=== PATIENT | male | born 1940 | race Caucasian/White ===

== ENCOUNTER 2023-08-02 09:47 | Inpatient (IN) | payer MEDICARE, OTHER ==
[~2023-08-02] VITALS: Ht 175.3 cm; Wt 79.5 kg
--- NOTE | 2023-08-02 09:45 | NUR ---
TRANSITIONAL CARE ACKNOWLEDGEMENT LETTER DISCUSS AND SIGNED BY PATIENT.
[~2023-08-02 09:47] MED LIST: CHILDREN'S ASPI81 M1 PO; LISINOPRIL-HCT1 EAC2 PO; LISINOPRIL10 MG PO; METFORMIN HCL500 MG PO
--- NOTE | 2023-08-02 10:20 | NUR ---
PT ADMITTED UNDER SWING BED STATUS FROM ACUTE CARE, STAYING IN SAME ROOM. PT AWAKE IN BED, AT THE BEDSIDE. PT DENIES PAIN/NAUSEA/SOB AT THIS TIME. PT CONTINUES HAVING WEAKNESS IN HIS R LEG, DORSIFLEXION STRONGER THAN PLANTAR FLEXION. PT STATES LEG IS FEELING "MUCH BETTER IN THE LAST DAY OR TWO". LUNG SOUNDS ARE CLEAR IN ALL LOBES. HEART TONES REGULAR. NO EDEMA PRESENT, PULSES STRONG IN ALL EXTREMETIES. SCDs IN PLACE AT THIS TIME. ACTIVE BOWEL TONES, NO BM SINCE 07/31/23. PT ON 60G CARB DIET. VOIDING QUANTITY SUFFICIENT INTO URINAL AT THE BEDSIDE. PT WATCHING TV AND VISITING WITH HIS AT THIS TIME. STATES NO FURTHER NEEDS, CALL LIGHT WITHIN REACH.
--- NOTE | 2023-08-02 10:40 | NUR ---
ROUNDS. PT AND EXPRESSED APPRECIATION FOR OPTION OF TCU; GRATEFUL THAT PT CAN CONTINUE TO PROGRESS WITH SUPPORT OF HOSPITAL STAFF. PROVIDED SUPPORTIVE PRESENCE; LISTENED EMPATHETICALLY; NORMALIZED EXPERIECNE. PT AND EXPRESSED GRATITUDE.
--- NOTE | 2023-08-02 11:27 | NUR ---
PHYSICAL THERAPY IN PT'S ROOM. PT STATES NO NEEDS AT THIS TIME. REMAINING ADMISSION FOR SWING BED NOT COMPLETED AT THIS TIME D/T PHYSICAL THERAPY APPOINTMENT. CALL LIGHT WITHIN REACH.
[2023-08-02 12:14] VITALS: BP 115/70
--- NOTE | 2023-08-02 14:45 | NUR ---
PATIENT SITTING UP IN RECLINER, I&OS CHARTED. FRESH ICE WATER PROVIDED. CALL LIGHT AND PERSONAL ITEMS IN EASY REACH.
--- NOTE | 2023-08-02 14:48 | NUR ---
Patient admitted to Swingbed status today. He is on a 60 gm Cons Carb diet. Appetite is fair since he is not doing much activity. Patient states he has no food allergies, no chewing or swallowing problems, and no nutrition concerns at this time. He does not like milk or coffee, does not want tea. Would like diet cran arun for breakfast. These preferences are in Meal IQ. He has a menu and understands how to call the kitchen by a certain time to make changes to his meals. Patient is at low nutrition risk at this time.
--- NOTE | 2023-08-02 15:54 | NUR ---
THIS RN CALLS DR. GUAMAN REGARDING PT RATING PAIN 7/10 AT THIS TIME AND ALSO ASKING FOR MIRALAX. DR. GUAMAN AWARE, STATES HE IS PLACING ORDERS AT THIS TIME. PT UP TO CHAIR, CALL LIGHT WITHIN REACH, STATES NO FURTHER NEEDS AT THIS TIME.
--- NOTE | 2023-08-02 18:02 | NUR ---
[place] [facility] [place] AND [place]S, ASSISTANCE WITH GETTING PANTS AND SOCKS OVER FEET. PT REQUESTS TO AMBULATE TO BED. PT AMBULATES WITH X2PA AND FWW. PT STATES NO FURTHER NEEDS AT THIS TIME, TALKING ON PHONE WITH AND CONTINUING CROSSWORD PUZZLES. CALL LIGHT WITHIN REACH, BED RAILS UP.
--- NOTE | 2023-08-02 19:20 | NUR ---
Patient with HOB elevated, watching TV, no complaints, no noted distress, Report provided by day shift RN, call light within reach.
--- NOTE | 2023-08-02 20:13 | NUR ---
Patient resting in bed, VSS, CMS intact to legs bilat, denies pain at this time, call light within reach, no noted distress.
[2023-08-02 21:41] VITALS: BP 136/65
--- NOTE | 2023-08-02 22:06 | NUR ---
Rounding on patient, lights are out, appears a sleep, no noted distress with RR bayron and unlabored, appears comfortable.
--- NOTE | 2023-08-03 00:03 | NUR ---
Patient appears a sleep, appears comfortable, RR bayron and unlabored, call light within reach,
--- NOTE | 2023-08-03 02:30 | NUR ---
Patient awake and watching TV, Has no compliants, denies need for pain medication, assessment without change, call light within reach.
--- NOTE | 2023-08-03 04:25 | NUR ---
Patient resting with eyes closed, appears comfortable, lights out, no noted distress, RR even and unlabored.
--- NOTE | 2023-08-03 05:23 | NUR ---
Patient has slept well this shift, Required no pain medication, Has had no distress, LE bilat CMS intact. Continues to appear comfort, call light within reach.
--- NOTE | 2023-08-03 07:35 | NUR ---
RECEIVED REPORT FROM GIOVANNI RUELAS. ASSUMING CARE OF PT.
--- NOTE | 2023-08-03 08:20 | NUR ---
PT STATES PAIN IS "NOT TOO BAD" RIGHT NOW, BUT WOULD LIKE PRN PAIN MEDICATION TO PREPARE FOR PHYSICAL THERAPY. PT ABLE TO AMBULATE WITH X1PA AND FWW, CONTINUES TO BE UNSTEADY ON OWN. LUNG SOUNDS CLEAR. HEART TONES REGULAR. NO EDEMA, CAP REFILL BRISK AND PULSES STRONG IN ALL EXTREMETIES. PT TOLERATING 60G CARB DIET WELL. PT VOIDING QUANTITY SUFFICIENT, CONTINUES TO USE URINAL AT THE BEDSIDE. PT STATES THE AREA AROUND HIS COCCYX IS SORE, SKIN ON COCCYX SHOWS NO REDNESS, BLANCHABLE. PT EDUCATION ON TURNING IN BED AND IN CHAIR TO PREVENT PRESSURE INJURY, PT VERBALIZES UNDERSTANDING. PT LYING IN BED WATCHING TV. PT STATES NO NEEDS AT THIS TIME, CALL LIGHT WITHIN REACH, BED RAILS UP.
--- NOTE | 2023-08-03 10:55 | NUR ---
PHYSICAL THERAPY AT THE BEDSIDE.
[2023-08-03 12:00] VITALS: BP 123/73
--- NOTE | 2023-08-03 16:40 | NUR ---
PT IN BED, HAS BEEN TURNING Q2H PER PT AFTER EDUCATION ON TURNING THIS AFTERNOON. PT STATES PAIN IS "MANAGEABLE" AT THIS TIME AND DENIES NEED FOR PAIN MEDICATION. PT STATES NO FURTHER NEEDS AT THIS TIME, CALL LIGHT WITHIN REACH, BED RAILS UP.
--- NOTE | 2023-08-03 18:20 | NUR ---
PT REPORTS DISCOMFORT BETWEEN BUTTOCKS, REDNESS SEEN BY THIS RN. WOUND CARE NURSE NOTIFIED AND TO BEDSIDE. SEE TEMP RECRUITER NOTE AND ASSESSMENT.
[2023-08-03 20:01] VITALS: BP 150/80
--- NOTE | 2023-08-03 20:09 | NUR ---
Patient awake, watching TV, lying on right side with pillow supports, Encouraging independence as tolerates, Bilat LE CMS intact, patient denies pain at this time. VSS, Report provided by juan RN, call light within reach.
--- NOTE | 2023-08-03 22:16 | NUR ---
Patient assisted to turn from right side to left, pillows in place for support, patient tolerated well. call light within reach.
--- NOTE | 2023-08-04 00:01 | NUR ---
Rounding on patient, Continues to sleep, appears comfortable without distress, resp even and unlabored, call light within reach.
--- NOTE | 2023-08-04 02:39 | NUR ---
Rounding on patient who remains a sleep, lying on his side, appears comfortable, no distress, RR even and unlabored.
--- NOTE | 2023-08-04 04:15 | NUR ---
Patient continues to sleep well, no distress, RR even and unlabored, call light within reach.
--- NOTE | 2023-08-04 05:04 | NUR ---
Patient has slept well thru the night. He has stayed on his side with pillow supports, He has required no pain medication, CMS to lower extremeties intact.
[2023-08-04 05:14] VITALS: BP 143/85
--- NOTE | 2023-08-04 05:53 | NUR ---
Patient awake, assisted to turn on other side with pillows in place for support. Requested and given pain medication. Watching TV now, VSS. call light within reach.
--- NOTE | 2023-08-04 08:30 | NUR ---
GOT PATIENT UP ON THE SIDE OF HIS BED HELPED HIM PUT ON HIS UNDERWEAR. THAN WE WALKED OVER TO HIS CHAIR. PATIENT HAD HIS WALKER. CHANGED HIS BED LINENS. ALSO SET HIM UP TO BRUSH HIS TEETH AND WASH HIS FACE.
[2023-08-04 09:05] VITALS: BP 127/87
--- NOTE | 2023-08-04 09:44 | NUR ---
Patient sitting up in chair, no acute distress, a&ox4. Patient reports tolerable pain at this time. Miralax provided to patient per his request to prevent constipation. Patient eating breakfast at this time. No current needs, personal supplies and call light within reach.
--- NOTE | 2023-08-04 11:13 | NUR ---
ROUNDS. PT WORKING WITH PHYSICAL THERAPY. CONNECTED BRIEFLY WHILE WALKING; PROVIDED SUPPORTIVE PRESENCE; PROVIDED SILENT PRAYER.
--- NOTE | 2023-08-04 12:02 | NUR ---
Patient sitting up in chair watching tv, no distress. Patient reports tolerable pain at this time. Lunch to patient. Patient denies needs, personal supplies and call light within reach.
--- NOTE | 2023-08-04 13:15 | NUR ---
WHEN I GOT BACK FROM LUNCH PATIENT WANTED ME TO PUT MORE WATER IN HIS FLOWER VASE. HIS LYNCH WERE THIRSTY. TOOK HIS LUNCH TRAY OUT.
--- NOTE | 2023-08-04 15:24 | NUR ---
Admin tylenol 650mg po and oxycodone 5mg po for reports of 5/10 right hip pain. Patient denies further needs, call light within reach.
--- NOTE | 2023-08-04 19:20 | NUR ---
FISCAL ECONOMIST assisting patient in room. Report given by laura DAVILA.
--- NOTE | 2023-08-04 20:37 | NUR ---
Patient assisted by TRAUMA COORDINATOR from chair to bed. Barrier cream applied to gluteal fold. Rash noted from previous day gone. VSS, Patient declines need for pain medication at this time, Bruise noted to right hip, CMS to lower extremeties intact, patient resting and watching TV, call light within reach.
[2023-08-04 20:41] VITALS: BP 156/78
--- NOTE | 2023-08-04 22:01 | NUR ---
Patient resting with eyes closed, appears comfortable, no noted distress, RR even and unlabored.
--- NOTE | 2023-08-04 23:57 | NUR ---
Patient is awake, stated he slept for a little while, has no complaints, he is watching TV, call light within reach.
--- NOTE | 2023-08-05 02:13 | NUR ---
Patient called, requested and given pain medication, putting HOB down now to get some more sleep. no complaints, assessment without change. call light within reach.
--- NOTE | 2023-08-05 03:50 | NUR ---
Patient resting with eyes closed, appears comfortable, no distress, RR even and unlabored. call light within reach.
--- NOTE | 2023-08-05 06:26 | NUR ---
Patient did not sleep well the first part of shift, awake watching TV, Medicated for right hip pain once with 5mg oxy. CMS intact, Patient resting now with eyes closed and appears comfortable, RR even and unlabored. call light within reach.
--- NOTE | 2023-08-05 08:02 | NUR ---
Patient sitting up in chair, alert and oriented x3, no distress. Pt reports 5/10 right hip pain, admin tylenol 650mg po and oxycodone 5mg po at this time. Patient has no needs. Personal supplies and call light within reach.
--- NOTE | 2023-08-05 08:27 | NUR ---
Patient requested a blood sugar spot check. bs 172 at this time. Patient just had a large glass of orange juice-education provided to patient regarding likelihood of increased sugar as he just drank juice. Patient repors his understanding but still wanted bs checked.
--- NOTE | 2023-08-05 15:00 | NUR ---
AFTER HIS SHOWER WAS DONE I DRIED HIS BACK AND THE BOTTOM OF HIS LEGS. HE PUT ON HIS SHIRT. NEEDED A LITTLE HELP ON PUTTING ON HIS UNDERWEAR AND SWEAT PANTS. THAN WE WALKED BACK TO HIS BED. LAYING ON HIS LEFT SIDE. IN ROOM.
[2023-08-05 15:06] VITALS: BP 119/97
--- NOTE | 2023-08-05 15:41 | NUR ---
Patient in bed resting, no distress. at bedside visiting. No current needs, peronal supplies and call light within reach.
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
--- NOTE | 2023-08-05 18:09 | NUR ---
Admin tylenol 650mg po and oxycodone 5mg po for reports of 8/10 right hip pain.
[2023-08-05 20:13] VITALS: BP 126/73
--- NOTE | 2023-08-05 20:30 | NUR ---
PT LEYING ON LEFT SIDE, BRUISED AREA R HIP AND GROIN. NO C/O PAIN. TURNS AND REPOSITIONS SELF. ON ROOM AIR, CLEAR LUNS. ALLEVYN DRESSING TO SACRAL AREA, DESITING OINTMENT APPLIED TO RECTAL AREA. PLEAQSANT AND COOPERATIVE. FRESH WATER GIVEN.
--- NOTE | 2023-08-06 01:21 | NUR ---
RESTING, LAYING ON RIGHT SIDE, ROOM IAR, TURNS AND REPOSTIONS SELF IN BED. USED URINAL, VOIDING DARK YELLOW URINE QS
--- NOTE | 2023-08-06 02:01 | NUR ---
USED CALL LIGHT, TURNED AND REPOSITIONED TO LEFT SIDE PER HIS REQUESTS
--- NOTE | 2023-08-06 03:01 | NUR ---
hob elevated, c/o R hip pain 02/23. medicated with Oxycodone 10mg po. fresh water given. awake and alert
--- NOTE | 2023-08-06 05:29 | NUR ---
PT ON ROOM AIR, CLEAR LUNGS, NO BM SINCE 07/31, AND SOFT ABD, DENIES S/SX CONSTIPATION. HAS BEEN MEDICATED WITH OXYCODONE 10MG PO PER R HIP PAIN, R HIP BRUISED LATERAL AREA, AND INGUINAL CREASE. ALLEVYN WAS APPLIED EARLIER BY WOUND NURSO TO SACRAL AREA, AND DESITIN GOINTMENT APPLIED TO RECTAL ENTRANCE. PT SAID IT HAS WORKED IN THE PAST WHEN HE HAD RECTAL TEARS. COOPERATIVE. tOLERATING LIQUIDS WELL, NO N/V, TURNS AND REPOSITIONS SELF IN BED. USES URINAL, VOIDING DARK YELLOW URINE QS. PLEASANT AND COOPERATIVE, USES CALL LIGHT
--- NOTE | 2023-08-06 07:50 | NUR ---
PT ALERT AND INTERACTIVE AT TIME OF SHIFT REPORT. ASSISTED UP TO THE CHAIR FRESH H20 TO CHAIRSIDE. PT HAS CALL LIGHT AND NEEDED ITEMS IN REACH AGREES HE IS COMFORTABLE. MAKING EFFORT TO RELIEVE PRESSURE FROM HIS BOTTOM SITTING MORE ON HIS SIDE.
--- NOTE | 2023-08-06 08:48 | NUR ---
PT UNABLE TO GET OFF HIS BOTTOM AND COMFORTABLE IN THE CHAIR. SPOKE WITH P/T AND DC KITCHEN BATH DESIGNER R/T 90% RULE OF STAYING IN THE CHAIR. PT INSTRUCTED PRESSURE RELIEF IS IMPORTANT AND PLAN TODAY IS TO RESTING SIDE LYING IN BED AND THEN UP AMBULATING, STRETCHING, AND STANDING AT REGULAR INTERVALS. PT ASSISTED TO BED RESTING ON L SIDE MORNING MEAL PROVIDED.
--- NOTE | 2023-08-06 09:28 | NUR ---
PT UP AMBULATING WITH P/T GONE TO THERARAPY ROOM.
--- NOTE | 2023-08-06 11:19 | NUR ---
PT TO THE SHOWER STAFF ASSIST TO WASH AND DRY. PT RETURNS TO SITTING ON THE EDGE OF THE BED. IS PRESENT IN THE ROOM.
--- NOTE | 2023-08-06 11:30 | NUR ---
FISSURE ON PT BOTTOM VISUALIZED, HE ALSO HAS A SMALL SHALLOW OPEN AREA TOP RIGHT GLUTEAL FOLD. THERE ARE NO INDICATIONS OF PRESSURE RELATED INJURIES OR PROBLEM AREAS. ENTIRE BOTTOM WASHED WELL IN THE SHOWER AND DESITIN APPLIED. FOAM DRESSING REMOVED PRIOR. DISCUSSED SKIN CARE, WOUND TREATMENT, AND LINK WASH AT LENGTH WITH PT AND HIS . REPORTS SHE WAS TOLD THE SAME BY THE VEGETABLE LOADER IN [place]. UNDERSTANDING VERBALIXZED
--- NOTE | 2023-08-06 14:15 | NUR ---
PT SAT UP IN THE CHAIR FOR A TIME HAS MOVED TO THE BED IN A SIDE LYING POSITION. PRESENT IN THE ROOM
[2023-08-06 14:34] VITALS: BP 137/81
--- NOTE | 2023-08-06 16:35 | NUR ---
PT UP TO THE CHAIR FOR EVENING MEAL WATCHING FOOTBALL GAME ON TV. HAS GONE HOME. CALL LIGHT AND NEEDED ITEMS IN REACH.
--- NOTE | 2023-08-06 19:33 | NUR ---
Pt up in recliner chair, visiting via phone, no c/o pain. legs elevated
[2023-08-06 20:47] VITALS: BP 123/78
--- NOTE | 2023-08-06 21:02 | NUR ---
pt was up in chair, elevated legs, 1pa/ sba/fww slow WBAT , did very well, only required help transferring up from chair and elevating legs back to bed. repositioned self. hob elevated at this time, denies need for pain med. "I would like to wait a little bit and do my pain meds and the oitment at the same time. Pleasant and cooperative, voided using urinal, medium colored yellow urine
--- NOTE | 2023-08-07 00:15 | NUR ---
Resting, eyes closed, HOB elevated, used urinal.
--- NOTE | 2023-08-07 02:31 | NUR ---
on room air, turned and repositioned, c/o 8/10 R leg pain. bruising R hip improving. cooperative, using urinal
--- NOTE | 2023-08-07 04:50 | NUR ---
Has slept, was medicated with Oxycodone and Tylenol per R hip pain. Bruised area R hip, helps with turning and repositionin. uses urinal, 1PA/FWW Contniues on transitional care.
--- NOTE | 2023-08-07 06:48 | NUR ---
Pt resting, in bed, hob elevated. laying on Left side, bruising R hip and R elbow. no changes. no s/sx distress. uses urinal
--- NOTE | 2023-08-07 07:38 | NUR ---
PT RESTING IN BED AT TIME OF SHIFT REPORT. UP TO THE CHAIR NOW, SBA USING THE WALKER. FRESH H20 TO CHAIRSIDE, CALL LIGHT IN HIS LAP. PT AGREES HE WOULD LIKE PAIN MEDS WITH MORNING MEAL TO PREPARE FOR P/T. LINK CARE COMPLETED BARRIER APPLIED. PERSONAL CARE ITEMS PROVIDED, PT BRUSHING HIS TEETH AND DOING MORNING CARES
--- NOTE | 2023-08-07 08:42 | NUR ---
BREAKFAST WELL TOLERATED PT CALLS FOR UP TO THE TOILET IS ABLE TO MOVE HIS BOWELS. LINK CARE COMPLETED AND BARRIER REAPPLIED. PT BACK TO THE CHAIR WATCHING TV NEEDED ITEMS IN REACH.
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
[2023-08-07 09:23] VITALS: BP 136/74
--- NOTE | 2023-08-07 10:22 | NUR ---
PT INDICATES HE HURTS MORE THAN YESTERDAY EVEN AFTER PAIN MED. ASSISTED BACK TO BED TO REST FOR A TIME BEFORE P/T. PT RESTING EYES CLOSED
--- NOTE | 2023-08-07 11:02 | NUR ---
PT UP WORKING WITH P/T AT THIS TIME
--- NOTE | 2023-08-07 11:18 | NUR ---
PT IS PAINFUL THIS SHIFT P/T HAS INCREASED. RETURNED TO BED AFTER SESSION TO REST FOR A BIT BEFORE NOON MEAL.
--- NOTE | 2023-08-07 13:29 | NUR ---
Dietary is sending either Glucerna or Ensure Max Protein with meals to optimize nutrition for wound healing.
--- NOTE | 2023-08-07 13:30 | NUR ---
ROUNDS. PT EXHIBITED POSITIVE ATTITUDE; EXPRESSED GRATITUDE. LISTENED EMPATHETICALLY; PROVIDED SUPPORTIVE PRESENCE; EXPLORED HOPE. PT EXPRESSED DETERMINATION AND GRATITUDE.
--- NOTE | 2023-08-07 14:27 | NUR ---
PT RESTED IN BED FOR AWHILE THEN UP TO THE CHAIR AROUND NOON TIME. PT TRYING TO REPOSITION OFF HIS BOTTOM NOT GETTING COMFORTABLE. TRANSFERRED TO BED FOR PRESSURE RELIEF. PT WATCHING TV.
--- NOTE | 2023-08-07 15:34 | NUR ---
PATIENT RESTING IN BED WATCHING TV. PATIENT DENIES NEED FOR PAIN MEDS AT THIS TIME. ASSISTED UP WITH SBA/FWW TO SHOWER, NAC ASSISTING IN SHOWER AT THIS TIME. NO COMPLAINTS AT THIS TIME. PATIENT WOULD LIKE TO REASSESS NEED FOR PAIN MEDICATIONS AFTER SHOWER.
--- NOTE | 2023-08-07 15:45 | NUR ---
PT UP TO THE SHOWER STAFF ASSIST.
--- NOTE | 2023-08-07 17:51 | NUR ---
PATIENT RESTING IN BED, WATCHING TV. CALL LIGHT WITHIN REACH. PT STATES PAIN IS IMPROVING /10. DINNER ON TABLE, GOOD APPETITE. CALL LIGHT WITHIN REACH. ALL PT CARE NEEDS MET AT THIS TIME.
--- NOTE | 2023-08-07 18:53 | NUR ---
PATIENT RESTING IN BED WITH EYES CLOSED. CALL LIGHT WITHIN REACH. NO ACUTE NEEDS AT THIS TIME.
--- NOTE | 2023-08-07 19:28 | NUR ---
REPORT RECEIVED FROM DAY SHIFT RN. PT LYING IN BED ALERT AND ORIENTED TALKING ON THE PHONE. DENIES NEEDS. WHITE BOARD UPDATED. CALL LIGHT IN REACH.
[2023-08-07 20:00] VITALS: BP 149/84
--- NOTE | 2023-08-07 20:19 | NUR ---
EVENING ASSESSMENT COMPLETE. PT REPORTS RIGHT HIP PAIN 12/24. PRN FOR PAIN ADMIN PER EMAR. CMS INTACT BILAT. BRUISE NOTED ON RIGHT HIP AND ELBOW. PT REPOSITIONING SELF IN BED. ASSISTED TO CHANGE CLOTHES FOR BED. VS AND I&O OBTAINED. PT DENIES FURTHER NEEDS. CALL LIGHT IN REACH.
--- NOTE | 2023-08-07 22:50 | NUR ---
PT RESTING IN BED WITH EYES CLOSED. RESPIRATIONS EVEN. URINAL EMPTIED. CALL LIGHT IN REACH.
--- NOTE | 2023-08-08 02:17 | NUR ---
PT AWAKE IN BED. URINAL EMPTIED. PT REPORTS RIGHT HIP PAIN 12/24. PRN FOR PAIN ADMIN PER EMAR. ASSISTED PT TO REPOSITION. NO FURTHER NEEDS.
--- NOTE | 2023-08-08 06:25 | NUR ---
PRN FOR RIGHT HIP PAIN ADMIN PER EMAR. PT REPOSITIONED SELF TO LEFT SIDE WITH PILLOW BEHIND RIGHT HIP. URINAL EMPTIED. NO FURTHER NEEDS.
--- NOTE | 2023-08-08 07:55 | NUR ---
PATIENT RESTING IN BED WATCHING TV THIS MORNING. STATES PAIN IS BETTER CONTROLLED THIS MORNING, 09/23. ASSISTED PT TO CHAIR THIS MORNING SBA W/ FWW, PT WAS MORE SHAKING BUT DID WELL. PROVIDED ORAL CARE SUPPLIES, WARM WASH CLOTHE, PATIENT ON THE PHONE AT THIS TIME WITH . ALL PATIENT CARE NEEDS MET AT THIS TIME.
--- NOTE | 2023-08-08 09:01 | NUR ---
PT UP IN CHAIR, EATING BREAKFAST, PAIN IS 4/10, PRN TYLENOL GIVEN. PT ARRIVED AT BEDSIDE, WILL COME BACK AFTER OXYCODONE AT ABOUT 1100 THIS MORNING. PT GIVEN MEDICATIONS, NO COMPLAINTS AT THIS TIME.
[2023-08-08 09:17] VITALS: BP 130/69
--- NOTE | 2023-08-08 10:09 | NUR ---
ROUNDS. PT WORKING WITH THERAPY. NO VISIT. PROVIDED PRAYER.
--- NOTE | 2023-08-08 10:21 | NUR ---
PATIENT LIKES VANILLA GLUCERNA AND CHOCOLATE ENSURE MAX PROTEIN. HE WAS EATING BREAKFAST WELL AND DRANK ALL OF THE VANILLA GLUCERNA. HE SAID HE IS DOING WELL WITH MEALS. WE HAVE HIS FOOD PREFERENCES IN THE MEAL IQ. 60 GM CONS CARB DIET IN PLACE. NO OTHER NUTRITION CHANGES NEEDED AT THIS TIME. WILL CONTINUE TO MONITOR AND ASSIST WITH ANY OTHER NUTRITIONAL NEEDS.
--- NOTE | 2023-08-08 10:46 | NUR ---
PT RESTING IN BED, WATCHING TV. C/O PAIN 01/23 NOW, FEELS PAIN JUST CREEPED UP. NO OTHER CONCERNS. REMINDED PT P/T WILL BE COMING HERE SHORTLY TO WORK WITH HIM. CALL LIGHT WITHIN REACH. ALL PATIENT CARE NEEDS MET AT THIS TIME.
[2023-08-08 11:00] VITALS: BP 130/69
--- NOTE | 2023-08-08 11:14 | NUR ---
PT RESTING IN BED, STATES PAIN IS SLOWLY IMPROVING. PRESENT AT BEDSIDE NOW, UPDATES GIVEN. DAUGHTER PRESENT ON THE PHONE. ALL QUESTIONS ANSWERED AT THIS TIME. AWAITING P/T FOR TO BE PRESENT. NO OTHER CONCERNS AT THIS TIME.
--- NOTE | 2023-08-08 14:57 | NUR ---
PT UP IN CHAIR, WORKING ON COMPUTER. PATIENT STATES PAIN IS SLIGHTLY BETTER THIS AFTERNOON, DISCUSSED PAIN MGMT, PT AGREES TO DECREASING TO 1 TABLET TO SEE HOW THAT MANAGES PAIN AND POSSIBLY ALTERNATE 5-10MG WITH NEXT DOSE, WILL EVALUATE EFFECTIVENESS. PT GIVEN LYNCH THAT WERE DELIVERED, WATERED ADDITIONAL LYNCH IN ROOM. SAT AT EDGE OF BED FOR ABOUT 10 MINUTES JUST CHATTING WITH PT. ALL CARE NEEDS MET AT THIS TIME.
--- NOTE | 2023-08-08 16:40 | NUR ---
PT SITTING UP IN CHAIR, WORKING ON COMPUTER. TOOK A SMALL NAP. STATES HE IS FEELING MUCH BETTER, REPOSITIONS SELF TO THE (L) HIP. ALL PATIENT CARE NEEDS MET AT THIS TIME.
--- NOTE | 2023-08-08 17:39 | NUR ---
PT UP IN CHAIR HAVING DINNER. REQUESTED DIABETIC ENSURE WITH DINNER. STATES HE IS FEELING BETTER THIS EVENING, NO COMPLAINTS AT THIS TIME.
--- NOTE | 2023-08-08 17:56 | NUR ---
PT HAS BEEN UP TO CHAIR FOR ALL MEALS. PT PAIN IS CONTROLLED AT THIS TIME AT 4/10, HE HAS REQUESTED TO ATTEMPT TO ALTERNATE BETWEEN 5MG AND 10MG FOR PAIN CONTROL, ALONG WITH TYLENOL. URINAL HAS BEEN AT BEDSIDE, GOOD OUTPUT. GOOD APPETITE FOR ALL MEALS. PRESENT AT BEDSIDE THIS AFTERNOON. VS STABLE THROUGHOUT SHIFT. P/T WORKED WITH PATIENT, STAIRS SEEM TO STILL BE A CONCERN FOR PT DISCHARGE. SBA W/ FWW AT ALL TIME. NO MAJOR EVENTS THIS SHIFT. ALL PATIENT CARE NEEDS MET AT THIS TIME.
--- NOTE | 2023-08-08 19:12 | NUR ---
REPORT RECEIVED FROM DAY SHIFT RN. PT LYING IN BED ALERT AND ORIENTED. DENIES NEEDS. WHITE BOARD UPDATED. CALL LIGHT IN REACH.
[2023-08-08 21:55] VITALS: BP 151/82
--- NOTE | 2023-08-08 22:11 | NUR ---
EVENING ASSESSMENT COMPLETE. PRN FOR 5/10 RIGHT LEG PAIN ADMIN PER EMAR. VS AND I&O OBTAINED, WNL. CMS INTACT BILAT. ASSISTED PT TO REPOSITION TO LEFT SIDE WITH PILLOW UNDER RIGHT HIP. PT DENIES FURTHER NEEDS. CALL LIGHT IN REACH.
--- NOTE | 2023-08-09 00:11 | NUR ---
PT REPORTS RIGHT LEG PAIN 5/10. PRN FOR PAIN ADMIN PER EMAR. ASSISTED PT TO REPOSITION IN BED. NO FURTHER NEEDS.
--- NOTE | 2023-08-09 02:44 | NUR ---
PT RESTING IN BED WITH EYES CLOSED. RESPIRATIONS EVEN. CALL LIGHT IN REACH.
--- NOTE | 2023-08-09 05:31 | NUR ---
PT SPILLED WATER IN BED. UP TO SIDE OF BED WITH SBA AND FWW TO CHANGE LINENS AND CLOTHING. PT ABLE TO LIFT LEGS INTO BED. POONAM WELL. PRN FOR 7/10 RIGHT LEG PAIN ADMIN PER EMAR. NO FURTHER NEEDS. CALL LIGHT IN REACH.
--- NOTE | 2023-08-09 07:43 | NUR ---
RECEIVED REPORT FROM KELLEY RN. PATIENT RESTING IN BED, EYES CLOSED. TV ON BUT DID NOT AWAKEN WHEN ENTERED ROOM. CALL LIGHT WITHIN REACH.
--- NOTE | 2023-08-09 08:44 | NUR ---
we helped him put his pants on and get up on his chair to eat his breakfest.
[2023-08-09 08:59] VITALS: BP 144/66
[2023-08-09 09:11] VITALS: BP 144/66
--- NOTE | 2023-08-09 10:17 | NUR ---
PT UP IN CHAIR, WORKING ON COMPUTER. PT ABLE TO MOVE LEG UP AND DOWN. EXERCISES DONE IN CHAIR, PER PT. PAIN 5/10 THIS MORNING POST PAIN MEDICATION. ALL PATIENT CARE NEEDS MET AT THIS TIME.
--- NOTE | 2023-08-09 11:03 | NUR ---
PT UP WALKING WITH P/T THIS MORNING. AMBULATING HALLWAYS W/ FWW/SBA. P/T REPORTS PATIENT DID WELL WITH 2 RAILS, STRUGGLED A BIT WITH 1RAIL/CANE. PLANNING FOR POSSIBLE HOME VISIT PT/OT EVMonday; POTENTIAL PLAN TO DISCHARGE HOME MONDAY IF EVERYTHING ALIGNS. WILL CONTINUE TO WORK WITH PATIENT THROUGHOUT THE DAYS FOR IMPROVEMENT IN STRENGTH/MOBILITY.
--- NOTE | 2023-08-09 12:35 | NUR ---
PT UP IN CHAIR, FINISHED WITH LUNCH, WATCHING TV. HAS EXERCISE BAND AROUND FOOT AND PERFORMING LEG LIFTS IN CHAIR. PT REPORT PAIN 6/10, PRN OXYCODONE/TYLENOL GIVEN. CALL LIGHT WITHIN REACH. FRESH ICE WATER GIVEN TO PATIENT. ATE 75% OF MEAL. ALL PATIENT CARE NEEDS MET AT THIS TIME.
[2023-08-09 13:08] VITALS: BP 138/86
--- NOTE | 2023-08-09 14:02 | NUR ---
PT UP IN CHAIR, EXERCISES WITH BELT BEING DONE TO (R) LEG. PT STATES PAIN IS 2-3/10 WHEN JUST RESTING, INCREASES TO ABOUT A 4/10 WHEN DOING HIS EXERCISES AT THIS TIME. NEEDED SOME ASSISTANCE WITH TV/REMOTE AND CHANGING CHANNELS. WORKING ON HIS COMPUTER WELL. REPOSITIONED SELF IN CHAIR, PILLOWS ADJUSTED BY RN. CALL LIGHT WITHIN REACH. URINAL EMPTIED. ALL PATIENT CARE NEEDS MET AT THIS TIME.
[2023-08-09 14:57] VITALS: BP 138/86
--- NOTE | 2023-08-09 15:00 | NUR ---
Spoke with pt and reminded of IDT meeting tomorrow with his TC team and asked he notify his . Pt feels he has improved, but feels eveyone is attempting to hurry him along or push him out too soon. PT arrives during our conversation to let him know they can do a home visit with him on Monday. Pt states he will tell his . He is also upset as he states everyone keeps asking about his railing being placed. He now has some hired to complete on Monday. I let him know this is a concern for his safety. I also let him know this will not be a hold up to his discharge. IF the rail cannot be place we can always discharge him and contact EMS for a courtesy lift to get into his home. I asked him to discuss his concerns tomorrow in the meeting as this is what the meeting is for.
--- NOTE | 2023-08-09 15:43 | NUR ---
PT SITTING UP IN CHAIR WITH AT BEDSIDE. SPENT ABOUT 20 MINUTES AT BEDSIDE WITH PT/FAMILY. PAIN IS 1/10 MAYBE WHILE AT REST. HAS BEEN WORKING ON EXERCISES ON/OFF WITH AT BEDSIDE. URINAL EMPTIED. WATER/CALL LIGHT WITHIN REACH. PT WAS WONDERING ABOUT OT, INFORMED PLAN TO STILL COME SEE HIM THIS EVENING. ALL PATIENT CARE NEEDS MET AT THIS TIME.
--- NOTE | 2023-08-09 16:09 | NUR ---
on my first round i offered patient to shower today and he agreed. around 1430 we went in to ask patient if he was ready to shower and he wanted the shower to wait because he was expecting occupational therapy to come.
--- NOTE | 2023-08-09 17:03 | NUR ---
OCCUPATIONAL THERAPY GAVE PATIENT A SHOWER AT 1700.
--- NOTE | 2023-08-09 18:13 | NUR ---
PT SITTING UP IN CHAIR. DINNER ALL EATEN, WATCHING FOOTBALL. PT C/O 04/25 PATIENT AFTER WORKING WITH OT THIS EVENING. THEY ASSISTED WITH SHOWER/CHANGED CLOTHES. PT STATES HE DID ALL ON HIS OWN WITH VERY MINIMAL ASSISTANCE AND IT WHEN DONE HE WAS IN SIGNIFICANT PAIN. PRN OXYCODONE/TYLENOL GIVEN. URINAL EMPTIED, CLEAR YELLOW. TRAY REMOVED FROM ROOM. PT WANTED TO SIT UP IN CHAIR FOR ANOTHER HOUR. CALL LIGHT WITHIN REACH. ALL PT CARE NEEDS MET AT THIS TIME.
[2023-08-09 18:27] VITALS: BP 141/72
--- NOTE | 2023-08-09 18:43 | NUR ---
PT HAS BEEN UP IN CHAIR THROUGHOUT THE DAY. WORKED WITH PT/OT. PT REQUESTED TO ALTERNATE BETWEEN 5 AND 10MG THROUGHOUT DAY BUT WAS UNABLE TO DUE TO INCREASED ACTIVITY AND MOBILITY. PT UTILIZED THE STRAP WITH LEG EXERCISES WHILE IN THE CHAIR. PRESENT IN THE EVENING. GOOD APPETITE FOR ALL MEALS. SHOWERED THIS EVENING WITH OT ASSISTANCE. ALL PT CARE NEEDS MET TODAY, NO SIGNIFICANT EVENTS AND PATIENT CONTINUES TO WORK ON MOBILITY/ACTIVITY AND EXERCISES FOR DISCHARGE HOME.
--- NOTE | 2023-08-09 19:10 | NUR ---
REPORT RECIEVED FROM LIZZY DAVILA. pt RESTING IN THE BED. pt DENIES ANY OTHER NEEDS AT THIS TIME. CALL LIGHT WITHIN REACH.
[2023-08-09 20:52] VITALS: BP 141/81
--- NOTE | 2023-08-09 21:00 | NUR ---
ASSESSMENT AND VITAL SINGS DONE. pt STATE PAIN IS TOLERABLE AT THIS TIME. CMS INTACT. pt A&O X4. WATER REFRESHED. URINAL EMPTIED. ROOM CLEANED. pt DENIES ANY OTHER NEEDS AT THIS TIME. CALL LIGHT WITHIN REACH.
--- NOTE | 2023-08-10 00:30 | NUR ---
pt RESTING IN THE BED. pt C/O 09/23 PAIN. PRN PAIN MEDICATION ADMINISTERED, SEE MAR. pt DENIES ANY OTHER NEEDS AT THIS TIME. CALL LIGHT WITHIN REACH.
--- NOTE | 2023-08-10 02:10 | NUR ---
pt RESTING IN THE BED WITH EYES CLOSED. RR EVEN AND UNLABORED. NO S/SX OF OBVIOUS DISTRESS. CALL LIGHT WITHIN REACH.
--- NOTE | 2023-08-10 03:30 | NUR ---
pt C/O 09/23 PAIN. PRN PAIN MEDICATION ADMINISTERED, SEE MAR. pt DENIES ANY OTHER MEDICATION AT THIS TIME. CALL LIGHT WITHIN REACH.
--- NOTE | 2023-08-10 07:48 | NUR ---
REPORT RECEIVED FROM NIGHT RN - PT RESTING IN BED WITH HOB ELEVATED EYES CLOSED, RR EVEN AND UNLABORED. CALL LIGHT IN REACH.
--- NOTE | 2023-08-10 08:00 | NUR ---
PATIENT AWAKE IN BED, AM GLUCOSE OF 170 NOTED. WASHCLOTH PROVIDED FOR FACE AND HANDS. PLAN TO SHOWER BETWEEN BREAKFAST AND LUNCH TODAY, PATIENT AWARE. CALL LIGHT IN EASY REACH. NO OTHER NEEDS AT THIS TIME
--- NOTE | 2023-08-10 08:18 | NUR ---
PT ASSISSTED UP TO CHAIR FOR BREAKFAST - FWW AND 1PA. PT ABLE TO DRESS SELF WITH SWEAT PANTS WITH MODERATE HELP ON RIGHT LEG. PRN PAIN MEDICATION ADMINISTERED - SEE EMAR. CALL LIGHT AT SIDE, ALL REQUESTS PROVIDED AT THIS TIME.
[2023-08-10 11:26] VITALS: BP 148/91
--- NOTE | 2023-08-10 11:26 | NUR ---
Spoke with patient and his after the IDT meeting as they had concerns to discuss about care. Daughter was also on the phone for the conversation. Able to work through concerns and frustrations with the followin.Mckayla will return this afternoon to reassess wound and will write updated orders with wound care plan on white board so that the patient and can advocate for the patient's wound care. 2. Daughter requested that if the patient is started on an NSAID as discussed by Dr. Serna that his kidney function be checked as it has been borderline in the past. 3. Will get either an eggcrate on bed or place the waffle mattress back on the bed per Mckayla's recommendation. Discussed with patient that the red valve can be opened to rapidly deflate the mattress when he is trying to get out of the bed as he felt he was fighting the mattress when attempting to get out of the bed. 4. We will try to give a window of time when procedures or therapies will happen and will notify the patient and his if we are unable to meet the time window. Per the daughter and , the patient is very time-oriented and will hold staff to specific times if they are given. The daughter is also a nurse and involved in the care of the patient. The patient, and daughter were encouraged to discuss their concerns as they arise. The plan remains to do a home visit tomorrow at 0930, the will be here to drive the patient to the house to do the home visit with PT and OT staff. The patient and his family are agreeable to the plan for the home visit, and then will re-evaluate what the patient needs to continue to try to get home after his stay here. The patient and agree that the goal is to go home and not to have to go to a long-term detention facility.
--- NOTE | 2023-08-10 11:50 | NUR ---
IN PATIENTS ROOM TO DISCUSS SHOWER, PATEINT JUST FINISHING UP WITH O/T AND IS RESTING IN BED. THIS X RAY SERVICE ENGINEER AND PATIENT AGREED SHOWER CAN WAIT TIL "AFTER LUNCH." ALICE WITH P/T IN ROOM WELL AND STATES SHE WILL WORK AROUND SHOWER TIME WHEN IT'S CONVENITNT WITH PATIENT. PATIENT AGREES. IN ROOM WELL.
--- NOTE | 2023-08-10 12:12 | NUR ---
RN ROUNDING ON PT - RESTING IN BED WITH ON COUCH. PT REQUESTS BOTH OXY AND TYLENOL FOR 6/10 PAIN - ADMINISTERED. PT DENIES FURTHER NEEDS. RN TAKES WIFES LUNCH TRAY FOR DISPOSAL.
--- NOTE | 2023-08-10 13:00 | NUR ---
PATIENT FINISHED WITH LUNCH, THIS COMMERCIAL CONSTRUCTION SUPERINTENDENT IN TO SEE PATIENT. URINE DUMPED AND TRAY REMOVED AND CHARTED. WHEN ASKED IF NOW IS A GOOD TIME FOR SHOWER, PATIENT APPEARS FLUSTERED AND STATES "EVERYONE WANTS TO DO EVERTHING AT THE SAME TIME." PATIENT IS HOLDING HIS CELL PHONE AND MENTIONS NEEDING TO MAKE A PHONE CALL. PATIENT IS TOLD THE SHOWER CAN WAIT AND TO USE CALL LIGHT WHEN HE'S READY. PATIENT AGREES. RN NOTIFIED.
[2023-08-10 13:15] LABS: ANION GAP 13.1 (7-21); BUN/CREATININE RATIO 35.18 (6.0-28.6); CALCIUM 9.2 mg/dL (8.5-10.1); CREATININE, SERUM 1.08 mg/dL (0.70-1.30); POTASSIUM 4.1 mmol/L (3.5-5.1)
--- NOTE | 2023-08-10 14:00 | NUR ---
PATIENT INTO SHOWER WITH 1PA, FWW AND GAIT BELT. PATIENT A LITTLE UNSTEADY ON HIS FEET, ESPECIALLY RIGHT SIDE. USES WALKER APPROPRIATELY. PATIENT ABLE TO WASH HIMSELF, NEEDING ASSISTANCE ONLY WITH BACK OF BODY. PATIENT DRIED HIMSELF AND THIS ASSISTANCE IN PUTTING SOCKS AND SWEATS ON DUE TO VERY WET SHOWER FLOOR. FWW, GAIT BELT AND 1PA BACK TO CHAIR. P/T ALICE IN TO WORK WITH PATIENT. LINEN CHANGED, FOAM EGG CRATE MATTRESS ON BED WELL FOR COMFORT.
--- NOTE | 2023-08-10 15:16 | NUR ---
PT IN CHAIR VISITING WITH FRIENDS
--- NOTE | 2023-08-10 15:30 | NUR ---
Spoke with Gary and discussed his home visit tomorrow. Reviewed with Gary the TC/Swing Bed Temporary Absence of Resident form. Pt will go home tomorrow at 9:30 until 10:30 or so. Pt plans on returning when the therapist return. Pt signed form.
--- NOTE | 2023-08-10 16:40 | NUR ---
PT PROVIDED PRN PAIN MEDICATION AT REQUEST FOR 5/10 PAIN. UP IN CHAIR WATCHING TV, DENIES WANTING TO LAY DOWN IN BED BUT ALSO STATES HE IS NOT COMFORTABLE. OFFERED TO REPOSISTION IN CHAIR, DENIED. CHAIR TURNED TOWARDS TV AND ALL ITEMS ON TABLE ARRAINGED PER PT DIRECTION. CALL LIGHT IN LAP.
--- NOTE | 2023-08-10 19:15 | NUR ---
Patient lying in bed watching TV, Report provided by juan DAVILA.
--- NOTE | 2023-08-10 19:20 | NUR ---
Patient resting in bed, watchiing TV. Report provided by shift RN.
--- NOTE | 2023-08-10 20:05 | NUR ---
Upon entering the room the patient is expressing frustration about nobody doing anything, he puts is call light on and no one is helping him, "Their not taking care of my buttom...my knee...I just dont know." Patient difficult to talk with as he does want to hear what you have to say. Everything seeming very dramatic to him. RN listened and attempted to meet patient needs. Pt. medicated with pain medication per request. Patient concerned about his next dose of pain medication and made a plan to recheck with him at 10pm. VSS, CMS to lower extremties intact. call light within reach.
--- NOTE | 2023-08-10 20:24 | NUR ---
WEEKLY WOUND ASSESSMENT: PATIENT HAD SHOWERED BEFORE NURSE ARRIVED. INTO ROOM PATIENT SITTING UP IN RECLINER EATING DINNER. DISCUSSED WOUND CARE PROGRESS WITH PATIENT WHO VERBALIZED " I AM NOT SURE, I AM JUST WORRIED THAT THE NURSES AREN'T FOLLOWING THE WOUND CARE ORDERS" I READ TO THE PATIENT THE ORDERS OFF THE WHITE BOARD. THE PATIENT VERBALIZED THAT THE SKIN PREP WAS NOT BEING USED AND STATED " THEY TOOK IT AWAY FROM ME" I ASSURED THE PATIENT AND SHOWED HIM THAT THE SKIN PREP SPRAY WAS WITH HIS WOUND CARE SUPPLIES AND ONLY NEEDED TO BE USED AFTER SHOWERING WHEN SKIN IS CLEAN AND BEFORE APPLYING MORE OF THE DESITIN CREAM. PATIENT THEN AGREED TO HAVE A WOUND ASSESSMENT DONE. PATIENT BACK TO BED, IN SIDE LYING POSITION AND WITH THE ASSISTANCE OF A STUDENT NURSE POSITIONED PATIENT FOR WOUND ASSESSMENT. PICTURES AND MEASUREMENTS TAKEN AND IN THE CHART. CLEANSED AREA WITH BARRIER CLOTHS, ZINC RESIDUAL REMOVED WITH WOUND CLEANSER, PATTING AWAY RESIDUAL. NOTED DERMATITIS AND MOSITURE ASSOCIATED SKIN DAMAGE RESOLVED. 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 SITE: HX PRESSURE ULCER- UNKNOWN STAGE-HEALED LEFT INNER SIDE OF GLUTEAL CLEFT SIZE: 0.3CM X 0.3CM X 0.01 WOUND BASE: RED, 100% CLEAN NON-GRANULATING TISSUE EDGES: OPEN, NON ATTACHED. EXUDATE: NONE, DRY LINK-WOUND SKIN: PINK, DRY, INTACT AND BLANCHABLE. APPLIED CAVILON SKIN PREP TO LINK-WOUND, LET DRY. APPLIED PROMOGRAN DANNI MATRIX TO WOUND BED, SECONDARY TO WOUND BASE BEING DRY MOISTENED WITH NORMAL SALINE TO CREATE GEL PER PLASTICS TOOLING ENGINEER RECOMMENDATIONS. SECONDARY DRESSING APPLIED SACRUM ALLEVYN DRESSING. CHANGE DRESSING EVERY 3 DAYS AND NEEDED. MAY CONTINUE TO USE DESITIN TO LINK SKIN FOR BARRIER CREAM NEEDED. PATIENT TOLERATED DRESSING CHANGE WELL. ASSISTED PATIENT WITH URINAL WHEN DONE. ON SPEAKER PHONE THROUGHOUT WOUND ASSESSMENT. ANSWERED QUESTIONS AND CONCERNS. PROVIDED EDUCATION ABOUT COLLAGEN AND NEW DRESSING. UPDATED WHITE BOARD. ENCOURAGED PATIENT TO CONTINUE TO OFFLOAD WEIGHT WHEN IN BED AND UP IN RECLINER. CONTACT WOUND CARE NURSE IF NOTED CHANGES IN WOUND THAT APPEAR WORSENING OR HAVE CONCERNS WITH TREATMENT. UPDATED CHARGE NURSE AND PRIMARY NURSE WITH NEW DRESSING CHANGE ORDERS. WOUND CARE ORDERS UPDATED IN [employer] ORDER SYSTEM.
[2023-08-10 20:30] VITALS: BP 145/88
--- NOTE | 2023-08-10 22:05 | NUR ---
Patient awake, medicated for discomfort, repositioned, lights out, call light within reach, patient with no further needs. Settling in to sleep.
--- NOTE | 2023-08-11 02:26 | NUR ---
Rounding on patient, appears a sleep, appears comfortable and in no distress, RR even and unlabored.
--- NOTE | 2023-08-11 02:59 | NUR ---
Upon entering the room, patient is awake. When asked how he was patient stated "well, I jefry had a meltdown last night didn't I". I asked patient if he was just worried about going home and he stated "no its not that, I'm just worried about my ...I see all the things you girls do for me and I know my will try to do it but it's more than she can do." Patient is also thinks about the safety trip to is home planned for today. Listened and provided support. Patient stated he will try to get more sleep. lights are out and call light in reach. Patient medicated for pain per request.
--- NOTE | 2023-08-11 04:56 | NUR ---
Patient appears a sleep, appears comfortable, no noted distress, RR even and unlabored, call light within reach.
--- NOTE | 2023-08-11 07:47 | NUR ---
Patient in bed watching tv, no distress. Patient reports he slept well last night. Plan of care for this morning discussed with patient, he reports his understanding. No current needs at this time, call light within reach.
--- NOTE | 2023-08-11 08:25 | NUR ---
Patient up in chair, alert and oriented x4, no distress. Patient requesting pain medications. Admin ibuprofen 400mg po for reports of 4/10 right hip pain. Patient denies needs at this time, call light within reach.
[2023-08-11 09:02] VITALS: BP 149/80
--- NOTE | 2023-08-11 09:19 | NUR ---
PATIENT LEAVING FOR HOME HEALTH VISIT WITH PHYSICAL THERAPIST AT 0915.
--- NOTE | 2023-08-11 11:14 | NUR ---
PT RETURNED FROM HOME HEALTH VISIT WITH FAMILY 11:15 AM.
--- NOTE | 2023-08-11 11:21 | NUR ---
Patient back from outing. Patient awake, alert and oriented x4. Patient received tylenol 650mg po and oxyodone 5mg po for reports of 8/10 right hip pain. Patient reports his trip home with and pt went well. at bedside, no current needs.
--- NOTE | 2023-08-11 11:45 | NUR ---
PATIENT COMPLETED HOME VISIT WITH PT AND OT. MULTIPLE RECOMMENDATIONS FROM PT AND OT ABOUT SAFE DC TO HOME. PATIENT IS NOT READY FOR DC AT THIS TIME. WILL CONTINUE TO WORK WITH THERAPIES.
--- NOTE | 2023-08-11 14:46 | NUR ---
RECEIVED CALL FROM ZHOU AT [facility]. PATIENT'S SPOUSE CALLED TO GET PLACEMENT IN THEIR FACILITY. ZHOU CALLED TO VERIFY PATIENT IS IN OUR FACILITY. DISCUSSED PATIENT REQUEST TO GO TO [facility]. CHART FAXED TO [facility].
--- NOTE | 2023-08-11 15:20 | NUR ---
SPOKE WITH ZHOU AT [facility]. ABLE TO ACCEPT PATIENT ON 08/14/23. PLAN TO DC FROM HERE AT 1100 MONDAY TO GO TO [facility]. [facility] REQUESTING COVID SWAB WITHIN 24 HOURS OF DISCHARGE.
--- NOTE | 2023-08-11 16:02 | NUR ---
CALLED AND SPOKE WITH [place], . STATES SHE HAS BEEN CALLING FACILITIES FOR PATIENT TO GO AFTER HE LEAVES HERE. IS NOT YET READY TO COMMIT TO [facility] AT THIS TIME. WOULD LIKE PATIENT TO BE RE-EVALUATED BY THERAPIES ON MONDAY AFTER A COUPLE MORE DAYS TO WORK THROUGH THERAPY. STATES IF HE NEEDS PLACEMENT, MONDAY WOULD BE A BETTER OPTION. CALLED AND LEFT MESSAGE FOR CRYSTAL AT [facility].
--- NOTE | 2023-08-11 17:31 | NUR ---
Patient reports his pain is tolerable at this time. No current needs, personal supplies and call light within reach.
--- NOTE | 2023-08-11 17:42 | NUR ---
Admin tylenol 650mg po and oxycodone 5mg po for reports of 5/10 right hip pain.
--- NOTE | 2023-08-11 19:20 | NUR ---
Patient resting in bed watching TV, no noted distress, Report provided by day shift RN.
--- NOTE | 2023-08-11 20:10 | NUR ---
Patient in a good mood, apologized for last night and being so distressed. VSS, Right hip pain controlled, CMS intact, Given bedtime snack per request. Watching TV, call light within reach.
[2023-08-11 21:55] VITALS: BP 151/83
--- NOTE | 2023-08-11 22:03 | NUR ---
Patient resting with eyes closed, appears comfortable, no distress, RR even and unlaborted. call light within reach.
--- NOTE | 2023-08-11 22:39 | NUR ---
Patient medicated per request, no change in assessment, call light within reach
--- NOTE | 2023-08-12 00:25 | NUR ---
Patient appears a sleep, appears comfortable, no noted distress, RR bayron and unlabored.
--- NOTE | 2023-08-12 02:01 | NUR ---
Rounding on patient. Appears a sleep, appears comfortable with no noted distress, RR even and unlabored @ 18. call light within reach.
--- NOTE | 2023-08-12 04:14 | NUR ---
Patient awake. Requested and given pain medication. No further request and patient going back to sleep, call light within reach,
--- NOTE | 2023-08-12 05:25 | NUR ---
Patient resting with eyes closed, appears comfortable, no noted distress, RR even and unlabored, call light within reach.
--- NOTE | 2023-08-12 07:40 | NUR ---
RECEIVED REPORT FROM GIOVANNI RUELAS. ASSUMING CARE OF PT. PT AWAKE IN BED, STATES NO NEEDS AT THIS TIME, CALL LIGHT WITHIN REACH, BED RAILS UP.
--- NOTE | 2023-08-12 08:05 | NUR ---
PT CALLS FOR HELP ADJUSTING BREAKFAST TRAY, THIS RN DISCUSSES GETTING UP TO CHAIR FOR BREAKFAST, PT REFUSES AND STATES "I AM NOT READY TO GET UP YET". PT STATES NO FURTHER NEEDS AT THIS TIME, CALL LIGHT WITHIN REACH.
[2023-08-12 08:50] VITALS: BP 144/81
--- NOTE | 2023-08-12 10:08 | NUR ---
PT UP TO CHAIR AT THIS TIME, PHYSICAL THERAPY TO BEDSIDE.
--- NOTE | 2023-08-12 10:45 | NUR ---
PT BACK TO BED AFTER PHYSICAL THERAPY, REQUESTS ADDITIONAL PRN PAIN MEDICATION, GIVEN. PT CONTINUES TO AMBULATE WITH SBA AND FWW. LAST BM THIS MORNING. PT TOLERATING 60G CARB DIET WELL. PT CONTINUES TO USE URINAL TO VOID, VOIDING QUANTITY SUFFICIENT CLEAR YELLOW URINE. WOUND ON INNER GLUTEAL FOLD REMAINS COVERED WITH FOAM DRESSING, DRESSING CHANGE NOT DUE TODAY PER WOUND CARE ORDERS. FISSURE NEAR RECTUM REMAINS DRY AND OPEN TO AIR. PT DOING CROSSWORD PUZZLES AND WATCHING TV. PT STATES NO FURTHER NEEDS AT THIS TIME, CALL LIGHT WITHIN REACH.
--- NOTE | 2023-08-12 11:50 | NUR ---
PT UP TO CHAIR TO EAT LUNCH.
--- NOTE | 2023-08-12 16:00 | NUR ---
PT HAS QUESTIONS ABOUT PRN PAIN MEDICATIONS, PT AND EDUCATED ON PAIN MANAGEMENT, PT AND VERBALIZE UNDERSTANDING.
[2023-08-12 16:23] VITALS: BP 144/81
--- NOTE | 2023-08-12 17:20 | NUR ---
PT REFUSES TO GET UP TO CHAIR FOR DINNER, STATES HE FEELS TIRED. EDUCATION ON SWING BED, PT VERBALIZES UNDERSTANDING.
--- NOTE | 2023-08-12 21:17 | NUR ---
sitting up in bed, LE elevated, used urinal, denies c/o R hip pain. ffresh fluids given on requests.
[2023-08-12 22:22] VITALS: BP 153/50
[2023-08-12 22:25] VITALS: BP 153/50
--- NOTE | 2023-08-12 22:33 | NUR ---
coop with assessment, medicated with Ibuprofen per c/o 10/24 R hip pain.
--- NOTE | 2023-08-13 00:19 | NUR ---
RESTING, NO S/SX DISTRESS, CONTINUES ON TRANSITIONAL CARE
--- NOTE | 2023-08-13 04:11 | NUR ---
resting, no distress, uses urinal
--- NOTE | 2023-08-13 05:35 | NUR ---
Pt continues on transitional care. Has slept most of this shift. Uses urinal, voiding QS. fluidsa t bedside, tolerating well. Turns and repositions self, legs elevated to his comofrt. hob elevated. Was medicated X1 with Motrin per c/o R hip pain, bruised area R hip improving. no other requests.
--- NOTE | 2023-08-13 07:54 | NUR ---
RECEIVED REPORT FROM GIOVANNI LANCASTER. ASSUMING CARE OF PT.
--- NOTE | 2023-08-13 08:29 | NUR ---
PT UP TO BATHROOM TO HAVE BOWEL MOVEMENT. PT USES FWW WITH STANDBY ASSIST. PT VOID X1. PT BACK TO CHAIR. FRESH WATER AND TISSUES PROVIDED. CALL LIGHT GIVEN. PT DENIES OTHER NEEDS.
--- NOTE | 2023-08-13 09:30 | NUR ---
PT AWAKE AND UP TO CHAIR, HAS FINISHED EATING BREAKFAST AND DOING CROSSWORD PUZZLES WHILE WATCHING TV. PT REQUESTS PRN PAIN MEDICATION TO PREPARE FOR PHYSICAL THERAPY, GIVEN. DRESSING ON GLUTEAL CLEFT WOUND REMAINS COVERED, DRESSING CHANGE EXPECTED TODAY. PT STATES NO FURTHER NEEDS AT THIS TIME, CALL LIGHT WITHIN REACH.
[2023-08-13 09:56] VITALS: BP 146/81
--- NOTE | 2023-08-13 12:50 | NUR ---
PATIENT IS SITTING UPRIGHT IN BED WITH HIS AT THE BEDSIDE AND WATCHING FOOTBALL. PATIENT REQUESTING A SHOWER BEFORE 1700. PATIENT LUNCH TRAY REMOVED FROM THE PATIENTS ROOM. PATIENT AND FAMILY STATED NO FURTHER NEEDS AT THIS TIME. CALL LIGHT AND PERSONAL BELONGINGS ARE WITHIN REACH.
--- NOTE | 2023-08-13 16:10 | NUR ---
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 PT STATES NO FURTHER NEEDS AT THIS TIME, CALL LIGHT WITHIN REACH.
--- NOTE | 2023-08-13 19:27 | NUR ---
REPORT RECEIVED FROM DAY SHIFT RN. PT LYING IN BED ALERT AND ORIENTED. DENIES NEEDS. WHITE BOARD UPDATED. CALL LIGHT IN REACH.
[2023-08-13 20:33] VITALS: BP 142/81
--- NOTE | 2023-08-13 20:59 | NUR ---
EVENING ASSESSMENT COMPLETE. SCHEDULED PAIN MEDS ADMIN PER EMAR. PT REPORTS RIGHT HIP PAIN /. PT DENIES NAUSEA. CMS INTACT BILAT. BRUISE ON RIGHT HIP NOTED. DRESSING TO COCCYX AREA INTACT. PT DENIES QUESTIONS OR CONCERNS. CALL LIGHT IN REACH.
--- NOTE | 2023-08-13 23:12 | NUR ---
URINAL EMPTIED. PT REPOSITIONING SELF TO LEFT SIDE. NO FURTHER NEEDS. CALL LIGHT IN REACH.
--- NOTE | 2023-08-14 02:36 | NUR ---
PT AWAKE IN BED. DENIES PAIN. SCHEDULED MEDS ADMIN PER EMAR. FRESH WATER PROVIDED. URINAL EMPTIED. NO FURTHER NEEDS.
--- NOTE | 2023-08-14 05:19 | NUR ---
PT RESTING ON LEFT SIDE WITH EYES CLOSED. RESPIRATIONS EVEN. I&O OBTAINED.
--- NOTE | 2023-08-14 07:32 | NUR ---
PT AWAKE AND INTERACTIVE AT TIME OF SHIFT REPORT. UP TO THE TOILET SBA BACK TO THE CHAIR. AGREES HE IS READY FOR BREAKFAST. CALL LIGHT AND NEEDED ITEMS IN REACH.
--- NOTE | 2023-08-14 09:31 | NUR ---
PT HAS BEEN UP IN THE CHAIR ENTIRE MORNING. SPOKE WITH HIS VIA PHONE AND HAD BREAKFAST WHILE WATCHING TV. PT IS WORKING WITH P/T AT THIS TIME
[2023-08-14 10:09] VITALS: BP 158/84
--- NOTE | 2023-08-14 10:15 | NUR ---
PATIENT AWAKE IN BED, FINISHED WITH P/T. VITALS AND I&OS CHARTED. ROOM TIDIED. CALL LIGHT IN EASY REACH. NO OTHER NEEDS AT THIS TIME.
--- NOTE | 2023-08-14 13:02 | NUR ---
ROUNDS. PT EXHIBITED POSITIVE OUTLOOK. PROVIDED HOSPTIATLITY; FACILIATED STORY TELLING; PROVIDED PRAYER. PT EXPRESSED HOPE; EXPRESSED GRATITUDE.
--- NOTE | 2023-08-14 13:10 | NUR ---
NOON MEAL WELL TOLERATED. PT CONTINUES UP IN THE CHAIR HE IS WEARING HOME CLOTHES AT THIS TIME. AGREES HE IS COMFORTABLE
[2023-08-14 14:31] VITALS: BP 154/79
--- NOTE | 2023-08-14 16:50 | NUR ---
Assisted Pt 1PA FWW with to bathroom shower chair for showering. Pt independent in cleaning self. Assisted Pt back to recliner. Assisted Pt with getting dressed. Gave Pt fresh ice water. No other needs expressed by Pt.
[2023-08-14 18:05] VITALS: BP 149/74
--- NOTE | 2023-08-14 18:28 | NUR ---
PT UP FROM THE CHAIR BACK TO HIS BED WARM BLANKET PROVIDED. SHOWER WELL TOLERATED. PT WATCHING TV DENIES DISCOMFORTS OR NEEDS OF
--- NOTE | 2023-08-14 19:31 | NUR ---
REPORT RECEIVED FROM DAY SHIFT RN. PT LYING IN BED ALERT AND ORIENTED. ASSISTED TO REPOSITION. URINAL EMPTIED. NO FURTHER NEEDS. WHITE BOARD UPDATED. CALL LIGHT IN REACH.
[2023-08-14 19:50] VITALS: BP 161/83
--- NOTE | 2023-08-14 20:01 | NUR ---
EVENING ASSESSMENT COMPLETE. SCHEDULED PAIN MEDS ADMIN PER EMAR. PT REPORTS RLE PAIN /. CMS INTACT BILAT. VS AND I&O OBTAINED, WNL. PT DENIES QUESTIONS OR CONCERNS. CALL LIGHT IN REACH.
--- NOTE | 2023-08-15 02:00 | NUR ---
PT RESTING WITH EYES CLOSED. AWAKENS EASILY. REPORTS RIGHT LEG PAIN 09/23. SCHEDULED PAIN MEDS ADMIN PER EMAR. URINAL EMPTIED. FRESH WATER PROVIDED. NO FURTHER NEEDS.
--- NOTE | 2023-08-15 07:29 | NUR ---
VERBAL REPORT RECEIVED FROM MAXINERN, LIZZYRN, ORIENTING NURSE, PRESENT FOR REPORT. PT RESTS IN BED WITH EYES CLOSED, RESP EVEN AND UNLABORED.
--- NOTE | 2023-08-15 07:51 | NUR ---
PT SLEEPING UPON INITIAL ENTRY TO ROOM, DID NOT AWAKE. CALL LIGHT ON THE BED. NO NEEDS AT THIS TIME.
[2023-08-15 09:00] VITALS: BP 151/73
--- NOTE | 2023-08-15 09:31 | NUR ---
PT RESTING, ASSISTED UP TO CHAIR FOR BREAKFAST, SBA W/ FWW. WASHCLOTHE GIVEN AND PT WASHED FACE, SETUP WITH ORAL CARE SUPPLIES. IN GOOD SPIRITS THIS MORNING, FEELS LIKE HE HAD A ROUGH NIGHT HE STATES. PAIN 6/10 GIVEN SCHEDULE TYLENOL/MOTRIN. ORAL MEDICATIONS GIVEN. CBG 128 BEFORE BREAKFAST. ALL PATIENT CARE NEEDS MET, CALL LIGHT WITHIN REACH.
[2023-08-15 10:01] VITALS: BP 151/73
[2023-08-15 13:31] VITALS: BP 138/77
--- NOTE | 2023-08-15 14:40 | NUR ---
PT WAS IN BATHROOM, CALL LIGHT GOING OFF. ASSISTED PT OUT OF BATHROOM SBA/FWW. PT WANTED TO REST LAYING IN BED FOR A SHORT PERIOD. PAIN 4/10, DENIES NEED FOR PAIN MEDICATION AT THIS TIME. PRESENT IN ROOM, WATCHING TV. BEDSIDE TABLE SETUP FOR PT. CALL LIGHT WITHIN REACH. ALL PATIENT CARE NEEDS MET AT THIS TIME. P/T WORKING WITH PT WHEN I WAS LEAVING THE ROOM.
--- NOTE | 2023-08-15 17:20 | NUR ---
PT WATCHING TV IN BED, UP TO CHAIR FOR DINNER, SBA W/ FWW. DENIES NEED FOR PAIN MEDICATIONS. DINNER ARRIVED AND PT DID NOT NEED ANY ASSISTANCE. CALL LIGHT WITHIN REACH, ALL PT CARE NEEDS MET AT THIS TIME.
--- NOTE | 2023-08-15 17:54 | NUR ---
Spoke with Gary and his , Mary. Pt feels he is doing better and PT are in agreement. We discussed possible dc to home on Monday or Monday. We also discussed if pt does not feel ready for dc at this time, we can discuss placement to a SNF if he needs a longer term rehab. Pt c/o today is he is painful. He is getting his meds as ordered. Dr. Barrios reviewed and did change the Tylenol and PRN as he was concerned for over dose of meds. A sign was placed on the wall in front of Gary to remind him he will need to request pain meds from now on. gave update, the second rail was completed on entrance to their home. She is cont. to work on suggestions made at the home visit. Will review all on at IDT meeting.
--- NOTE | 2023-08-15 19:48 | NUR ---
REPORT RECEIVED FROM DAY SHIFT RN. PT SITTING IN RECLINER ALERT AND ORIENTED. DENIES NEEDS. WHITE BOARD UPDATED. CALL LIGHT IN REACH.
--- NOTE | 2023-08-15 21:00 | NUR ---
SBA. PATIENT TRANSFERRED FROM CHAIR TO BED USING WALKER. SIDE TABLE AND CALL LIGHT WITHIN REACH. NO OTHER NEEDS BUT ASKING HIS NIGHT MEDS. NOTIFIED PRIMARY RN.
[2023-08-15 21:11] VITALS: BP 160/80
--- NOTE | 2023-08-15 21:30 | NUR ---
EVENING ASSESSMENT COMPLETE. PT REPORTS RIGHT HIP PAIN 5/10. PRN FOR PAIN ADMIN PER EMAR. PT ABLE TO REPOSITION SELF IN BED. CMS INTACT BILAT. VS AND I&O OBTAINED. FRESH WATER PROVIDED. PT DENIES QUESTIONS OR CONCERNS. CALL LIGHT IN REACH.
--- NOTE | 2023-08-16 02:52 | NUR ---
ROUNDING ON PT. URINAL EMPTIED. PT REPORTS RLE PAIN 09/23. PRN FOR PAIN ADMIN PER EMAR. FRESH WATER PROVIDED. NO FURTHER NEEDS.
[2023-08-16 03:27] VITALS: BP 160/80
--- NOTE | 2023-08-16 06:46 | NUR ---
PT RESTING ON RIGHT SIDE. EYES CLOSED. RESPIRATIONS EVEN. I&O OBTAINED. CALL LIGHT IN REACH.
[2023-08-16 07:51] VITALS: BP 149/84
--- NOTE | 2023-08-16 07:55 | NUR ---
PT RESTING IN BED, EYES OPEN WATCHING TV UPON ENTERING ROOM. BREAKFAST DELIVERED, ASSISTED PATIENT OUT OF BED. BATHROOM UTILIZED AND PT HAD BM. DSG CDI TO COCCYX AT THIS TIME. COVERED BUCKLE ASSEMBLER NOTIFIED NEEDS DRG CHANGED TODAY. CBG 129 THIS MORNING. SETUP IN CHAIR AND BREAKFAST PROVIDED TO PATIENT. ICE REFILLED IN CUP. PT DENIES ANY OTHER NEEDS AT THIS TIME. ALL PATIENT CARE NEEDS MET, CALL LIGHT WITHIN REACH.
[2023-08-16 08:20] VITALS: BP 149/84
--- NOTE | 2023-08-16 08:22 | NUR ---
Called [facility] as the wc has not been delivered. Zenaida states they were waiting for a dc date. I let them know, possible dc on Monday. I asked for the wc to be delivered tomorrow as it was ordered last week.
--- NOTE | 2023-08-16 10:45 | NUR ---
Spoke with Gary and updated, wc should be delivered from [place] tomorrow.
--- NOTE | 2023-08-16 10:56 | NUR ---
PT SITTING UP IN CHAIR, STATES JUST COMPLETED EXERCISES WITH O/T. WATCHING TV, CALL LIGHT WITHIN REACH. STATES PAIN IS MANAGABLE HE JUST FINISHING DOING EXERCISES. REMINDED PT TO MAKE SURE HE DOES PT EXERCISES - MINI STANDS FROM THE CHAIR, INSTRUCTIONS IS 2SETS OF 5- 4X/DAY. PT STATES HE WILL WORK ON THOSE THROUGHOUT THE DAY. ALL PATIENT CARE NEEDS MET AT THIS TIME.
--- NOTE | 2023-08-16 12:14 | NUR ---
PT WAS UP WALKING WITH PT, LUNCH WAS DELIVERED AND SETUP. PT DENIES NEED FOR PAIN MEDS. CALL LIGHT WITHIN REACH. ALL PATIENT CARE NEEDS MET AT THIS TIME.
[2023-08-16 12:17] VITALS: BP 133/80
--- NOTE | 2023-08-16 13:35 | NUR ---
PT RESTING IN CHAIR, EYES CLOSED/SLEEPING. TV ON AT THIS TIME.
--- NOTE | 2023-08-16 14:16 | NUR ---
THIS RN, ASSISTED GIOVANNI BALL, WITH SCHEDULED DRESSING CHANGE TO WOUND IN THE GLUTEAL CLEFT. OLD DRESSING REMOVED, NO DRAINAGED NOTED. SITE CLEANSED WITH WOUND CLEANSER AND PATTED DRY. NOTED WOUND BASE IS 100% EPITHELIALIZED. SITE IS PINK, DRY AND BLANCHABLE. SCAR TISSUE NOTED OVER COCCYX. RECOMMEND TO CONTINUE WITH DESITIN BID, OVER CLOSED WOUND, TO PROTECT NEW EPITHELIAL TISSUE FROM EXCESS MOISTURE. RECOMMEND TO CONTINUE OFF LOADING WITH CURRENT CHAIR CUSHION AND MATTRESS OVERLAY. RECOMMEND TO CONTINUE FREQUENT REPOSITIONING INCLUDING MICRO REPOSITIONING WHILE UP IN RECLINER. RECOMMENDATIONS DISCUSSED WITH PT, QUESTIONS ANSWERED. PT VERBALIZES UNDERSTANDING OF IMPORTANCE OF OFF LOADING AND KEEPING THE SITE CLEAN AND DRY. DESITIN APPLIED. PT SITS UP IN BED, CALL LIGHT IN REACH. WOUND GOAL: PROTECT NEW TISSUE AND HEAL THROUGH THE REMODELING STAGE.
--- NOTE | 2023-08-16 16:47 | NUR ---
PT RESTING IN BED WATCHING TV. DINNER TRAYS ARRIVED, SBA OOB W/ FWW, PT WAS ABLE TO DO ALL OF MOBILITY OUT OF BED, TO THE CHAIR WITH FWW. C/O 5/10 PAIN TO RIGHT LEG, PRN IBUPROFEN/TYLENOL GIVEN. CALL LIGHT WITHIN REACH, ICE WATER PROVIDED. ALL PATIENT CARE NEEDS MET AT THIS TIME.
[2023-08-16 18:03] VITALS: BP 139/70
--- NOTE | 2023-08-16 20:00 | NUR ---
Pt laying in bed, used urinal. Watching TV. Will be medicated at 2246 when pain meds are dure.
[2023-08-16 22:20] VITALS: BP 144/73
--- NOTE | 2023-08-16 22:23 | NUR ---
WATCHING TV, DENIES NEED FOR PAIN MEDS AT THIS TIME. ON ROOM AIR. REPOSITIONS SELF IN BED. BRUISING R HIP IMPROVING. PT ON TRANSITIONAL CARE. TOLERATING SMALL AMOUNT OF FLUIDS WELL, USES URINAL, VOIDING CLEAR YELLOW URINE
--- NOTE | 2023-08-17 00:21 | NUR ---
PATIENT C/O PAIN 12/24. MEDICATED WITH PRN IBUPROFEN AND TYLENOL. EMPTIED URINAL. REPOSITIONED SELF IN BED.
--- NOTE | 2023-08-17 02:38 | NUR ---
pt. is laying in bed on his back, watching TV. Urinal emptied. Denies any pain or discomfort at this time.
--- NOTE | 2023-08-17 04:18 | NUR ---
Patient laying in bed awake. Urinal emptied. No c/o pain or discomfort.
--- NOTE | 2023-08-17 05:29 | NUR ---
PATIENT IS ON ROOM AIR. ALERT AND OREINTED. MEDICATED X1 FOR PAIN. USES URINAL. VOIDING QS. REPOSITION SELF. CURRENTALY RESTING IN BED WITH EYES CLOSED.
--- NOTE | 2023-08-17 07:47 | NUR ---
Blood sugar 133 at this time, per pt request. Admin tylenol 650mg po and ibuprofen 400mg po for reported 3/10 right hip pain.
--- NOTE | 2023-08-17 08:07 | NUR ---
Pt got out of bed and into chair to eat breakfast. Pt canged clothes and had a BM. Bed linens were changed
--- NOTE | 2023-08-17 09:43 | NUR ---
RACE RELATIONS PROFESSOR ENTERED TO TAKE VITALS. PT VISITING IN ROOM. NO COMPLAINTS AT THIS TIME. PT CALL LIGHT IS WITHIN REACH
[2023-08-17 09:46] VITALS: BP 138/84
--- NOTE | 2023-08-17 10:30 | NUR ---
Spoke with pt and following MDT/IDT meeting. Pt has questions about Medicare and payment for food. discussed with pt this is not something that happens at the hospital. They will collect receipts when they are traveling for out of town appts. They would like a handicap parking permit. I will provide this and Dr. Barrios will sign. Discussed possible need for caregiver. I will provide a brochure for [employer]. also wants to know and plans on checking with the VA for assistance. Pt is not service connected. I gave her Licha Vera's CHILD GUIDANCE COUNSELOR at [facility] name and will contact. is now stating concern she will not be able to lift the wc which has been ordered from [facility]. We discussed transport chairs and medicare will not pay for these. [facility] does at times have. I called and spoke with Lynne at [facility] and they have two transport chairs available. notified and will parts picker. I called and cancelled the order for the WC from [facility]. We then discussed HH after dc. They would like [facility]. I will send the chart when discharge orders are written. Let them know [facility] will contact within 1-3 days and give them a time when they will be able to admit. PT/OT/SN will be ordered as pt does have a wound on his bottom. We did discuss further some of their complaints. I encouraged Mary to call Lianet Pereira in Risk management. I let them know I will also give them a survey prior to dc and would like them to be completely honest as we are open to complaints. We always want to improve our program. Dr Barrios signed the parking permit. I delivered the permit and the [employer] brochure to [facility]. Instructed Mary she will need to take the permit to the DMV.
--- NOTE | 2023-08-17 11:36 | NUR ---
Patient sitting up in chair, no acute distress. Patient and speaking with OT at this time. Encouraged patient to call if he has needs. Personal supplies and call light within reach.
--- NOTE | 2023-08-17 12:10 | NUR ---
Clarification for ordered tylenol/ibuprofen order from Dr. Barrios. New order obtained to make current tylenol and ibuprofen order to be every six hours as needed for pain. Medication order changed at this time.
--- NOTE | 2023-08-17 12:12 | NUR ---
Patient reports right hip pain is tolerable at this time. Patient updated with plan of care for GIOVANNI Tan to take over care at 1pm today. at bedside eating lunch with patient. Fresh water provided.
[2023-08-17 13:37] VITALS: BP 146/73
--- NOTE | 2023-08-17 15:41 | NUR ---
DESITIN APPLIED TO GLUTEAL CLEFT PER WOUND NURSE ORDER. PT TOLERATES WELL, IS ABLE TO TURN ON SIDE INDEPENDENTLY. PT STATES NO FURTHER NEEDS AT THIS TIME, CALL LIGHT WITHIN REACH.
--- NOTE | 2023-08-17 19:10 | NUR ---
REPORT RECIEVED FROM YENI DAVILA. pt RESTING IN THE BED. pt DENIES ANY NEEDS AT THIS TIME. CALL LIGHT WITHIN REACH.
--- NOTE | 2023-08-17 21:20 | NUR ---
ASSESSMENT AND VITAL SIGNS DONE. VSS. pt C/O 02/23 PAIN. PRN PAIN MEDICATION ADMINISTERED. WATER REFRESHED. PLAN DISCUSSED WITH pt FOR FURTHER PAIN MANAGMENT AND CONTROL. WATER REFRESHED. pt DENIES ANY OTHER NEEDS AT THIS TIME CALL LIGHT WITHIN REACH.
[2023-08-17 21:21] VITALS: BP 151/83
--- NOTE | 2023-08-18 00:15 | NUR ---
pt RESTING IN THE BED WITH EYES CLOSED. pt C/O 5/10 PAIN. PRN PAIN MEDICATION ADMINISTERED. pt DENIES ANY OTHER NEEDS AT THIS TIME. CALL LIGHT WITHIN REACH.
--- NOTE | 2023-08-18 03:15 | NUR ---
pt C/O 11/23 PAIN. PRN PAIN MEDICATION ADMINISERED. pt DENIES ANY OTHER NEEDS AT THIS TIME. CALL LIGHT WITHIN REACH.
--- NOTE | 2023-08-18 04:36 | NUR ---
pt RESTING IN THE BED WITH EYES CLOSED. RR EVEN AND UNLABORED. CALL LIGHT WITHIN REACH.
--- NOTE | 2023-08-18 06:05 | NUR ---
pt RESTING IN THE BED. pt C/O 12/24 PAIN. PRN PAIN MEDICATION ADMINISTERED. pt DENIES ANY OTHER NEEDS AT THIS TIME. CALL LIGHT WITHIN REACH.
--- NOTE | 2023-08-18 07:28 | NUR ---
PT RESTING WITH EYES CLOSED UPON GETTING REPORT FROM NIGHT RN. CALL LIGHT WITHIN REACH. ALL PT CARE NEEDS SEEM TO BE MET AT THIS TIME.
--- NOTE | 2023-08-18 08:19 | NUR ---
HELPED PATIENT GET OUT OF BED AND DRESSED FOR BREAKFAST. SET UP HIS THINGS TO BRUSH HIS TEETH AND A CLOTH TO WIPE HIS FACE.
--- NOTE | 2023-08-18 09:37 | NUR ---
Spoke with Gary. He cont. to plan on dc on Monday. He is excited to dc. He signed his [facility] notice of dc and I explained how to appeal if he does not feel ready for dc on Monday. Pt denies other needs. I left a survey with him and encouraged him to be honest. No further needs, plan remains to dc on Monday.
[2023-08-18 09:40] VITALS: BP 139/72
[2023-08-18 09:41] VITALS: BP 139/72
--- NOTE | 2023-08-18 11:32 | NUR ---
PT UP IN CHAIR. OT ENTERED ROOM EARLIER PT WANTED A SHOWER. ASSISTED PT WITH SHOWER. PT BACK IN CHAIR. JUST ARRIVED AND IS PRESENT AT CHAIRSIDE. CALL LIGHT WITHIN REACH. ALL PT CARE NEEDS MET AT THIS TIME.
--- NOTE | 2023-08-18 12:07 | NUR ---
AT CHAIRSIDE VISITING. CALL LIGHT WITHIN REACH. PT SHAVED WITH ELECTRIC RAZOR. DESITIN APPLIED TO COCCYX. VISITED WITH PT/ FOR ABOUT 10 MINUTES. ALL PATIENT CARE NEEDS MET. TRAY SETUP FOR LUNCH. CALL LIGHT WITHIN REACH.
--- NOTE | 2023-08-18 13:45 | NUR ---
GOT REPORT FROM ALPHONSO AT 1310. THIS NURSE WILL BE WORKING WITH LIZZY WITH PATIENT CARE UNTIL END OF SHIFT.
--- NOTE | 2023-08-18 14:13 | NUR ---
PT RESTING IN BED WITH EYES CLOSED, DID NOT WAKE WHEN ENTERING ROOM. TV ON, CALL LIGHT WTIHIN REACH. WILL ALLOW PT TO REST AT THIS TIME.
--- NOTE | 2023-08-18 14:45 | NUR ---
INTO CHECK ON PATIENT. PATIENT JUST WOKE UP FROM A NAP. HE IS CURRENTLY ON THE PHONE TALKING TO HIS . PATIENT HAS MUSIC PLAYING ON HIS TV. HELPED PATIENT GET HIS COVERS ON. DENIES ANY OTHER NEEDS. PATIENT HAS FRESH WATER, ICE PACKS, AND CALL LIGHT.
--- NOTE | 2023-08-18 15:57 | NUR ---
PT RESTING IN BED, WATCHING TV/WORKING ON WORD SEARCH. PAIN REPORTED 4/10 AT THIS TIME. PRN TYLENOL/MOTRIN GIVEN. ICE PACKS ON THE RIGHT HIP AT THIS TIME. CALL LIGHT WITHIN REACH. ICE WATER PROVIDED. ALL PT CARE NEEDS MET AT THIS TIME.
--- NOTE | 2023-08-18 17:18 | NUR ---
PT ASSISTED UP TO CHAIR FROM BED FOR DINNER. SBA/FWW. DINNER SETUP AND PT EATING AT THIS TIME. PAIN 3/10 AT THIS TIME. REMINDED PT TO COMPLETE 1 MORE SET OF MINI CHAIR LIFTS THIS EVENING AFTER DINNER. CALL LIGHT WITHIN REACH, TV ON AND WATCHING DURING DINNER. ALL PT CARE NEEDS MET AT THIS TIME.
--- NOTE | 2023-08-18 18:26 | NUR ---
PT SITTING UP IN CHAIR, AT BEDSIDE. PAIN 2/10 AT THIS TIME. ALL PT CARE NEEDS MET, CALL LIGHT WITHIN REACH. PT AND ARE HAVING PERSONAL CONVERSATION SO REQUESTED DOOR TO BE SHUT.
--- NOTE | 2023-08-18 19:10 | NUR ---
REPORT RECEIVED FROM LIZZY DAVILA. pt SITTING IN THE CHAIR. BOARD UPDATED. pt DENIES ANY OTHER NEEDS AT THIS TIME. CALL LIGHT WITHIN REACH.
[2023-08-18 20:21] VITALS: BP 167/91
--- NOTE | 2023-08-18 20:40 | NUR ---
ASSESSMENT AND VITAL SIGNS DONE. pt UP TO BR. WATER REFRESHED. DESITIN ON BUTTOCKS. pt BACK TO BED. SBA WITH FWW. VSS. RLE CMS INTACT. pt DENIES ANY OTHER NEEDS AT THIS TIME. CALL LIGHT WITHIN REACH.
--- NOTE | 2023-08-18 22:15 | NUR ---
PATIENT PROVIDED WITH PRN PAIN MEDS FOR RIGHT HIP PAIN 11/23. NO OTHER NEEDS AT THIS TIME. CALL LIGHT IN REACH.
--- NOTE | 2023-08-19 00:15 | NUR ---
pt RESTING IN THE BED WITH EYES CLOSED. RR EVEN AND UNLABORED. NO S/SX OF OBVIOUS DISTRESS. CALL LIGHT WITHIN REACH.
--- NOTE | 2023-08-19 02:40 | NUR ---
IN ROOM FOR ROUNDING. pt STATES HE HAD AN ACCIDENT. LINNENS CHANGED. UNDERWEAR AND SHIRT CHANGED. WARM BLANKET PROVIDED. URINAL EMPTIED. pt C/0 10/24 PAIN. PRN PAIN MEDICATION ADMINISTERED. pt DENIES ANY OTHER NEEDS AT THIS TIME. CALL LIGHT WITHIN REACH.
--- NOTE | 2023-08-19 04:15 | NUR ---
pt RESTING IN THE BED WITH EYES CLOSED. RR EVEN AND UNLABORED. CALL LIGHT WITHIN REACH.
--- NOTE | 2023-08-19 08:16 | NUR ---
INTO ROOM PATIENT AWAKE WATCHING TV RESTING IN BED. APPEARS CALM. DISCUSSED PAIN REGIME FOR THE DAY. RATES PAIN 5/10 ON PAIN SCALE, ADMINISTERED TYLENOL PO PER SEP. PATIENT UP TO BATHROOM, SOLID BM. APPEARED STEADY ON FEET WITH FWW. THEN TO CHAIR READY FOR BREAKFAST. PATIENT PUT ON PANTS WITH NO ASSIST. PROVIDED PATIENT WITH FRESH ICE WATER. NO OTHER NEEDS AT THIS TIME.
[2023-08-19 10:25] VITALS: BP 159/87
--- NOTE | 2023-08-19 11:00 | NUR ---
PATIENT SHOWERED. DENIES NEED FOR ANY IBUPROFEN AT THIS TIME. UP IN RECLINER. PATIENT CONVERSING WITH .
--- NOTE | 2023-08-19 15:00 | NUR ---
PATIENT AMBULATED IN HALLS WITH PHYSICAL THERAPY, APPEARED STEADY ON FEET. BACK TO ROOM PATIENT REPORTED PAIN 8/10 ON PAIN SCALE. ADMINISTERED TYLENOL AND IBUPROFEN PO, PROVIDED SNACK. NO OTHER NEEDS AT THIS TIME.
--- NOTE | 2023-08-19 17:30 | NUR ---
PROVIDED PATIENT WITH DIET SODA, AND ARRANGED FOR DRUM STRAIGHTENER TO TAKE PATIENT OUTSIDE FOR FRESH AIR. PATIENT STATED " I AM GOING CRAZY BEING IN THIS ROOM" TOLD PATIENT WITH BEING SWING BED IT WOULD BE OKAY TO GO ON WHEEL CHAIR RIDES, THAT EVEN THE COULD PUSH HIM AROUND THE HOSPITAL. PATIENT APPEARED TO IMPROVE, AND SMILED. PATIENT STATED "I WOULD REALLY LIKE THAT".
--- NOTE | 2023-08-19 19:10 | NUR ---
REPORT RECIEVED FROM CURRY DAVILA. pt RESTING IN THE BED. BOARD UP DATED. pt DENIES ANY OTHER NEEDS AT THIS TIME. CALL LIGHT WITHIN REACH.
[2023-08-19 20:59] VITALS: BP 167/82
--- NOTE | 2023-08-19 21:00 | NUR ---
ASSESSMENT AND VITAL SIGNS DONE. DESITIN ON BUTTOCKS. RLE CMS INTACT. SCHEDULED MEDS ADMINISTERED, SEE SEP. pt C/O 10/24 PAIN. PRN PAIN MEDICATION ADMINISTERED, SEE SEP. WATER REFRESHED. pt DENIES ANY OTHER NEEDS AT THIS TIME. CALL LIGHT WITHIN REACH.
--- NOTE | 2023-08-20 00:30 | NUR ---
ROUNDING ON pt. pt C/O 10/24. PRN PAIN MEDS ADMINISTERED. URINAL EMPTIED pt DENIES ANY OTHER NEEDS AT THIS TIME. CALL LIGHT WITHIN REACH.
--- NOTE | 2023-08-20 02:23 | NUR ---
pt RESTING IN THE BED WITH EYES CLOSED. RR EVEN AND UNLABORED. CALL LIGHT WITHIN REACH.
--- NOTE | 2023-08-20 03:19 | NUR ---
IN ROOM FOR PRN PAIN MEDICATION PER REQUEST OF PRIMARY RN. pt REPORTS PAIN TO RIGHT KNEE 3, PRN TYLENOL GIVEN-SEE EMAR. URINAL EMPTIED AND BOARD UPDATED. CALL LIGHT IN REACH ALONG WITH OTHER PERONAL BELONGINGS.
--- NOTE | 2023-08-20 04:02 | NUR ---
pt RESTING IN THE BED WITH EYES CLOSED. RR EVEN AND UNLABORED. CALL LIGHT WITHIN REACH.
--- NOTE | 2023-08-20 06:10 | NUR ---
pt RESTING IN THE BED WITH EYES CLOSED. RR EVEN AND UNLABORED. CALL LIGHT WITHIN REACH.
--- NOTE | 2023-08-20 07:57 | NUR ---
PT SITTING UP IN BED, WATCHING TV UPON ENTERING ROOM. PROVIDED PT HIS NOTEBOOK. EMPTIED URINAL. CURRENTLY ALL PT CARE NEEDS MET AT THIS TIME. CALL LIGHT WITHIN REACH.
--- NOTE | 2023-08-20 08:55 | NUR ---
MOLDER MEAT ASSISTED PT IN DRESSING AND GETTING INTO HIS CHAIR. PT HAD HIS BED LINENS CHANGED BY MOLDER MEAT. PT WAS GIVEN WARM WASHCLOTH TO WIPE OFF HIS FACE. PT ALSO USED THE RESTROOOM THIS MORNING. CALL LIGHT WITHIN REACH
--- NOTE | 2023-08-20 09:12 | NUR ---
PT WORKING WITH PT CURRENTLY ON RECOMBINENT BIKE. AMBULATED FROM ROOM WITH FWW. ALL PT CARE NEEDS MET AT THIS TIME.
[2023-08-20 09:38] VITALS: BP 129/73
--- NOTE | 2023-08-20 10:25 | NUR ---
CHIEF NUCLEAR MEDICINE TECHNOLOGIST ENTERED ROOM TO RECORD VITALS AND I&OS. PT WAS SITTING UP IN RECLINER. PT STATES NO COMPLAINTS AND CALL LIGHT IS WITHIN REACH
--- NOTE | 2023-08-20 11:03 | NUR ---
PT IS SITTING UP IN CHAIR. PT HAS FRIEND VISITING AT THIS TIME. DOES WANT A SHOWER BUT WAITING TILL THIS AFTERNOON. CALL LIGHT WITHIN REACH, ALL PT CARES NEEDS MET AT THIS TIME.
--- NOTE | 2023-08-20 11:28 | NUR ---
PT UP IN CHAIR, PROVIDING CHAIRSIDE SNACKS HE THOUGHT WERE MISSING: PEANUTS/COOKIES BROUGHT IN. WATCHING TV AT THIS TIME. C/O PAIN 2/10 PRN TYLENOL JUST GIVEN. ICE PROVIDED IN WATER FOR REFILL. ALL PT CARE NEEDS MET, CALL LIGHT WITHIN REACH AT THIS TIME.
[2023-08-20 12:12] VITALS: BP 129/73
--- NOTE | 2023-08-20 12:57 | NUR ---
ASSISTED PT WITH SHOWERING, BURSHING TEETH AND WASHING FACE. PT CHANGED INTO CLEAN CLOTHES NO COMPLAINTS. CALL LIGHT IN REACH
--- NOTE | 2023-08-20 13:36 | NUR ---
PT HAD SHOWER THIS AFTERNOON, KURTIS APPLIED TO COCCYX. PT RESTING IN BED AT THIS TIME, WATCHING TV. PAIN 01/23, OFFERED OXYCODONE FOR INCREASED PAIN BUT DECLINED AT THIS TIME. JUST WANTS THE TYLENOL DUE AT 1440. PT UNDERSTANDS HE MUST ASK FOR PAIN MEDS, WROTE DOWN HOW OFTEN HE CAN GET THEM MOVING FORWARD AGAIN. CALL LIGHT WITHIN REACH, ALL PT CARE NEEDS MET AT THIS TIME
--- NOTE | 2023-08-20 14:42 | NUR ---
PT RESTING WITH EYES CLOSED, TV ON. EYES OPENED WHEN ENTERED ROOM. C/O PAIN TO RIGHT HIP 03/26, ICE PACKS PROVIDED AND MOTRIN OFFERED BUT PT FELT HE WANTED TO TRY THE OXYCODONE IT WAS HURTING SO BAD. PRN OXYCODONE GIVEN. ALL PT CARES NEED MET AT THIS TIME. CALL LIGHT WITHIN REACH.
--- NOTE | 2023-08-20 14:51 | NUR ---
PT RESTING WHEN DEHYDROGENATION SUPERVISOR ENTERED TO RECORD I&OS. PT HAD VISIBLE SIGNS OF DISCOMFORT HAS BEEN TALKING WITH THE RN. PT HAS NO FURTHER CONCERNS CALL LIGHT WITHIN REACH
--- NOTE | 2023-08-20 17:56 | NUR ---
PT SITTING UP IN CHAIR, FINISHED WITH DINNER. LISTENING TO THE TV AT THIS TIME. UTILIZING HIS RAZOR IN HIS CHAIR. ICE PACKS APPLIED TO RIGHT HIP AGAIN, FOR PAIN STILL 6/10. ALL PT CARE NEEDS MET AT THIS TIME.
--- NOTE | 2023-08-20 19:18 | NUR ---
REPORT RECEIVED FROM GIOVANNI BALL. pt UP TO VOID WITH CNAS. RATES PAIN /10. REQUESTING PAIN MEDICATION AVAILABLE. RESTING IN BED WITH PERSONAL SUPPLIES IN REACH.
[2023-08-20 19:46] VITALS: BP 142/93
--- NOTE | 2023-08-20 20:00 | NUR ---
PRN PAIN MEDICATION ADMINISTERED FOR 7/10 REPORTED PAIN. pt DROWSY, RESTING WITH EYES CLOSED WHEN RN INITIALLY ENTERS ROOM. AWAKE. VS COMPLETE. ASSESSMENT COMPLETE. DESITIN APPLIED TO GLUTEAL FOLD. CALL LIGHT IN REACH. PUDDING AND ICE WATER PROVIDED.
--- NOTE | 2023-08-20 23:00 | NUR ---
CHECKED ON pt. RESTING IN BED WITH EYES CLOSED, BREATHING EQUAL AND UNLABORED.
--- NOTE | 2023-08-21 01:48 | NUR ---
CHECKED ON pt. pt RESTING IN BED USING URINAL. URINAL EMPTIED. pt RATES PAIN 7-8/10 IN RIGHT HIP. ASSISTED pt TO REPOSITION IN BED, ALIGN HIPS STRAIGHT. PRN PAIN MEDICATION ADMINISTERED WITH CRACKERS. ICE WATER REFILLED. CALL LIGHT IN REACH.
[2023-08-21 02:18] VITALS: BP 142/93
--- NOTE | 2023-08-21 04:47 | NUR ---
CHECKED ON pt. RESTING IN BED WITH EYES CLOSED, BREATHING UNLABORED. NO DISTRESS NOTED.
--- NOTE | 2023-08-21 06:32 | NUR ---
RN IN ROOM FOR IS AND OS. URINAL EMPTIED. pt RATES PAIN 7/10 IN RIGHT HIP. ICE PACKS PROVIDED AND IN PLACE. PRN PAIN MEDICATION ADMINISTERED. CALL LIGHT IN REACH.
--- NOTE | 2023-08-21 07:16 | NUR ---
PT RESTING WITH EYES CLOSED, DID NOT WAKE UPON ENTERING. TV ON AT THIS TIME. CALL LIGHT WITHIN REACH. ALL PT CARE NEEDS MET AT THIS TIME.
--- NOTE | 2023-08-21 08:15 | NUR ---
Spoke with Gary and continues to plan for dc today. will be in later. Reviewed IM letter which he signed on Monday with him. He denies needs.
--- NOTE | 2023-08-21 09:30 | NUR ---
Received completed order from Dr. Temple for pts dc and HH. Pt's has picked up DME pt needed.
--- NOTE | 2023-08-21 09:40 | NUR ---
Spoke with Dr. Temple and and daughter stating concern pt needs pain meds. He will not see his pcp until the 14. Daughter states she will need to bring pt back for ER visit if he has pain. Dr. Temple updated and agrees to dc with minimal pain pills as pt does not always take daily. He stopped in the room and spoke with family.
[2023-08-21 10:43] VITALS: BP 143/75
--- NOTE | 2023-08-21 10:49 | NUR ---
ROUNDS. PT AND FAMILY ANTICIPATING IMMENENT DISCHARGE. PROVIDED HOSPITALITY; LISTENED EMPATHETICALLY; PROVIDED SILENT PRAYER.
[2023-08-21] MEDS ORDERED: OXYCODONE HCL5 MG PO (11:13)
--- NOTE | 2023-08-21 17:28 | NUR ---
Swing Bed Forms completed and faxed with dc summary to [facility]. Chart faxed to [facility] and I called to notify pt has a wound on bottom and they will admit this week for eval and therapy.
== END 2023-08-21 11:30 | disposition home or self-care (01) | DRG 536 ==
LOC: MS 09:47
PROVIDERS: Internal Medicine; ADMIT Family Medicine; ATTEND Internal Medicine
DX: S72.114A Nondisplaced fracture of greater trochanter of right femur, initial encounter for closed fracture (principal); W01.0XXA Fall on same level from slipping, tripping and stumbling without subsequent striking against object, initial encounter; Y92.008 Other place in unspecified non-institutional (private) residence as the place of occurrence of the external cause; Z79.82 Long term (current) use of aspirin
CPT/HCPCS: 36415; 80048; 97110; 97112; 97116; 97140; 97161; 97165; 97530; 97535; A9270